=== PATIENT | female | born 1975 | race African-American/Black ===

== ENCOUNTER → 2019-01-06 | Outpatient (CLI) | payer OTHER ==
--- NOTE | 2019-01-06 14:31 | RADIOLOGY REPORT (SQ) ---
EXAM DESCRIPTION: MRI LT LOWER JOINT WITHOUT COMPLETED DATE/TIME: 01/06/2019 11:47 am REASON FOR STUDY: M25.562 PAIN IN LEFT KNEE M25.562 PAIN IN LEFT KNEE COMPARISON: None. TECHNIQUE: Leftknee images acquired and stored on PACS. Multiplanar images include fat sensitive se quences as T1, water sensitive sequences as FST2 or STIR, cartilage sensitive sequences as FSPD, and gradient echo sequences. LIMITATIONS: None. FINDINGS: JOINT AND BURSAE: Small joint effusion. No popliteal cyst. BONE CORTEX AND MARROW: No alteration of signal to suggest marrow replacement. No worrisome bone lesi ons. No occult fracture. ACL: Intact. No degeneration or ganglion cyst. PCL: Intact. MCL: Intact. No periligamentous edema or fluid. LCL: Intact. No periligamentous edema or fluid. MEDIAL MENISCUS: No tears. No abnormal signal. LATERAL MENISCUS: No tears. No abnormal signal. MEDIAL COMPARTMENT: Cartilage preserved. No bone bruises or reactive marrow edema. No osteophytes. LATERAL COMPARTMENT: 4 mm area of full-thickness cartilaginous loss of the lateral tibial plateau. PATELLA: No chondromalacia. No subchondral cysts. Medial and lateral retinacula intact. EXTENSOR MECHANISM: Intact. Quadriceps and patella tendons normal. SOFT TISSUES: Adjacent muscles and subcutaneous tissues normal. Normal flow void in popliteal artery and vein. OTHER: No other significant finding. IMPRESSION: Small area of cartilaginous loss lateral tibial plateau. Small joint effusion. TECHNICAL DOCUMENTATION: JOB ID: [id number] [employer]- All Rights Reserved Reading location - IP/workstation name: [email or web address]
== END ==
LOC: RAD 11:11
PROVIDERS: ATTEND Orthopaedic Surgery Sports Medicine
DX: M25.462 Effusion, left knee (principal); M25.562 Pain in left knee

== ENCOUNTER 2020-10-28 05:27 | Day surgery (SDC) | payer OTHER ==
--- NOTE | 2020-10-25 09:39 | RADIOLOGY REPORT (SQ) ---
EXAM DESCRIPTION: CHEST 2 VIEWS IMAGES COMPLETED DATE/TIME: 10/25/2020 9:28 am REASON FOR STUDY: PRE OP COMPARISON: 02/05/2007 EXAM PARAMETERS: NUMBER OF VIEWS: two views TECHNIQUE: Digital Frontal and Lateral radiographic views of the chest acquired. RADIATION DOSE: NA LIMITATIONS: none FINDINGS: LUNGS AND PLEURA: No opacities, masses or pneumothorax. No pleural effusion. MEDIASTINUM AND HILAR STRUCTURES: No masses or contour abnormalities. HEART AND VASCULAR STRUCTURES: Heart normal size. No evidence for failure. BONES: No acute findings. HARDWARE: None in the chest. OTHER: No other significant finding. IMPRESSION: NO ACUTE RADIOGRAPHIC FINDING IN THE CHEST. TECHNICAL DOCUMENTATION: JOB ID: [id number] [employer]- All Rights Reserved Reading location - IP/workstation name: [email or web address]
[2020-10-25 09:40] LABS: HEMATOCRIT 36.4 % (36.0-47.0); HEMOGLOBIN 12.2 g/dL (12.0-15.5); MEAN CORPUSCULAR HGB CONC 33.6 g/dL (32.0-36.0); MEAN CORPUSCULAR VOLUME 86 fl (80-97); PLATELET COUNT 244 10^3/uL (150-450); RED BLOOD COUNT 4.22 10^6/uL (3.72-5.28); WHITE BLOOD COUNT 4.5 10^3/uL (4.0-10.5)
[2020-10-25 09:59] LABS: APPEARANCE,URINE SLIGHTLY-CLOUDY; BILIRUBIN,URINE NEGATIVE (NEGATIVE); COLOR,URINE YELLOW; GLUCOSE, URINE NEGATIVE (NEGATIVE); KETONES,URINE NEGATIVE (NEGATIVE); LEUKOCYTE ESTERASE,URINE NEGATIVE (NEGATIVE); NITRITE,URINE NEGATIVE (NEGATIVE); PROTEIN,URINE NEGATIVE (NEGATIVE); URINE SPECIFIC GRAVITY 1.014; UROBILINOGEN,URINE NEGATIVE mg/dL (<2.0)
[2020-10-25 10:10] LABS: ALBUMIN 4.5 g/dL (3.5-5.0); ALKALINE PHOSPHATASE 68 U/L (38-126); ANION GAP 8 (5-19); ASPARTATE AMINO TRANSFERASE 31 U/L (14-36); BILIRUBIN,DIRECT 0.1 mg/dL (0.0-0.4); BILIRUBIN,TOTAL 0.7 mg/dL (0.2-1.3); BLOOD UREA NITROGEN 9 mg/dL (7-20); CALCIUM 9.5 mg/dL (8.4-10.2); CARBON DIOXIDE 28 mmol/L (22-30); CHLORIDE 102 mmol/L (98-107); GLUCOSE 92 mg/dL (75-110); TOTAL PROTEIN 7.8 g/dL (6.3-8.2)
--- NOTE | 2020-10-25 13:20 | EKG REPORT ---
SEVERITY:- NORMAL ECG - SINUS RHYTHM : Confirmed by: Gio Santa MD 25-Oct-2020 13:19:21
[~2020-10-28 05:27] MED LIST: CEFAZOLIN 1 GM/D5W RTU 1 GM/50 ML RTUPB IV PRN; RINGERS SOLUTION,LACTATED 1,000 ML IV PRN
[2020-10-28] MEDS ORDERED: CEFAZOLIN 1 GM/D5W RTU 1 GM/50 ML RTUPB IV ONE (05:34)
[2020-10-28] MEDS ORDERED: KETOROLAC TROMETHAMINE 60 MG/2 ML SDV ONE (06:31)
[2020-10-28] MEDS ORDERED: KETAMINE HCL INJ 500 MG/10 ML VIAL ONE (06:31)
[2020-10-28] MEDS ORDERED: MIDAZOLAM 2 MG/2 ML INJ ONE (06:31)
[2020-10-28] MEDS ORDERED: FENTANYL CITRATE INJ/PF 250 MCG/5 ML AMPULE ONE (06:31)
[2020-10-28] MEDS ORDERED: LIDOCAINE 2% INJ-PF (100 MG/5 ML) SYRINGE ONE (06:31)
[2020-10-28] MEDS ORDERED: ONDANSETRON HCL INJ/PF 4 MG/2 ML SDV ONE (06:32)
[2020-10-28] MEDS ORDERED: PROPOFOL INJ 200 MG/20 ML VIAL IV ONE (06:32)
[2020-10-28] MEDS ORDERED: EPHEDRINE SULFATE INJ 50 MG/1 ML AMPULE ONE (06:32)
[2020-10-28] MEDS ORDERED: FENTANYL CITRATE INJ/PF 100 MCG/2 ML AMPUL IV PRN ×2 (08:25)
[2020-10-28] MEDS ORDERED: PROMETHAZINE HCL INJ 25 MG/1 ML VIAL IV PRN (08:25)
[2020-10-28] MEDS ORDERED: ONDANSETRON HCL INJ/PF 4 MG/2 ML SDV IV PRN (08:25)
[2020-10-28] MEDS ORDERED: MEPERIDINE HCL/PF INJ 25 MG/1 ML DISP.SYRIN IV PRN (08:25)
[2020-10-28] MEDS ORDERED: DIPHENHYDRAMINE HCL 50 MG/ML VIAL IV PRN (08:25)
[2020-10-28] MEDS ORDERED: SUGAMMADEX SODIUM 200 MG/2 ML SDV IV ONE (09:51)
[2020-10-28] MEDS ORDERED: ACETAMINOPHEN 325 MG TABLET PO PRN (09:59)
[2020-10-28] MEDS ORDERED: RINGERS SOLUTION,LACTATED 1,000 ML IV PRN (09:59)
[2020-10-28] MEDS ORDERED: SIMETHICONE 80 MG TAB.CHEW PO PRN (09:59)
[2020-10-28] MEDS ORDERED: ACETAMINOPHEN 1,000 MG/100 ML RTUPB IV PRN (09:59)
[2020-10-28] MEDS ORDERED: OXYCODONE-ACETAMINOPHEN 5-325 MG TABLET PO PRN ×2 (09:59)
--- NOTE | 2020-10-28 10:15 | Operative Report ---
Operative Report DATE OF SURGERY: 10/28/20 PREOPERATIVE DIAGNOSIS: Multiple symptomatic leiomyoma of the uterus, dysfuncti onal uterine bleeding, anemia, pelvic pain POSTOPERATIVE DIAGNOSIS: Same OPERATION: Biotic assisted total laparoscopic hysterectomy with bilateral ino pingectomy SURGEON: VALERIA MORAN 1ST SPIRAL WINDER: GURU ACEVES 2ND Cotton Feeder: JUAN FRANCISCO HUGHES ANESTHESIA: GA TISSUE REMOVED OR ALTERED: Uterus cervix bilateral fallopian tubes COMPLICATIONS: None ESTIMATED BLOOD LOSS: 250 cc INTRAOPERATIVE FINDINGS: 14-week size uterus enlarged with multiple fibroids, adhesions of the bladder to the lower uterine segment PROCEDURE: Patient was taken to the operating room prepared and draped in normal sterile fashion in dorsolithotomy position. Under sterile conditions a Salas catheter was placed to gravity. Speculum was placed into the vagina and the cervix was grasped on the anterior lip with a single-tooth tenaculum. The cervix was then dilated to accommodate a medium V care uterine manipulator. Manipulate it was placed gloves were changed and attention was turned to the upper portion of the case. A 2-1/2 cm umbilical skin incision was made 11 blade and this was carried through to the underlying layer of fascia with the same 11 blade. It was grasped to Sampson's acted with Casillas's. Peritoneal cavity was entered bluntly. A GelPort was placed in a normal fashion, a large morcellation bag was then placed into the right paracolic gutter. the camera port and air seal in the appropriate locations gel. Peritoneal cavity was then inflated with approximately 2 L of CO2 gas. The camera was then introduced into the peritoneal cavity through the camera port and the patient was placed in steep Trendelenburg. The above findings were noted. Under direct visualization two 5 mm ports were placed approximately 10 cm on either side of the umbilicus. The robot was then docked with the vessel sealer placed on the patient's left and the monopolar scissors placed placed on the patient's right. I then unscrubbed and set at the robotic console beginning with the left adnexa fallopian tube was transected from the uterus using the vessel sealer and monopolar scissors as needed. The fallopian tube was then removed through the assistance port. The ovarian ligament was then transected using the vessel sealer. The uterine artery was skeletonized using blunt dissection and ligated using the vessel sealer down to the level of the external cervical os. The bladder flap was then begun using monopolar scissors and blunt dissection over the V care cup noted through the mucosa. Attention was then turned to the right adnexa where the fallopian tube was transected in a similar fashion. The utero-ovarian ligament was transected using the vessel sealer. The Uterine artery was then transected using the vessel sealer and skeletonized using blunt dissection. The vessel sealer was again used to completely transect the uterine artery down to the level of the external cervical os. The bladder flap was completed using similar sharp and blunt dissection. Once the bladder was felt to be adequately away from the lower uterine segment, the colpotomy was begun on the anterior aspect of the cervix following the outline of the V care cup mucosa. The cup was followed in a circumferential fashion completely around the cervix estimate was completely freed. The specimen was then tucked in the upper pericolic gutter for removal later due to its size. The instruments were then changed to a Cholo needle over the road driver and pro-grasp. AV lock needle was introduced through the assistance port. The V lock needle was used to close the vaginal cuff with good hemostasis. The needle was then removed through the assistance port. The peritoneal cavity was carefully inspected the ureters were noted to both be peristalsing and there was no signs of hydroureter. The morcellation bag was then located and untied the and was located in the upper left paracolic gutter and placed within the morcellation bag. Grasper was placed on the specimen to hold it within the bag. The abdomen was deflated and the robot was then undocked. Morcellation bag was brought to the GelPort service however the specimen had slipped out of the morcellation bag. Attempts to bluntly palpate for the specimen to bring it to the umbilical opening were unsuccessful. Multiple attempts were tried specimen could be palpated but could not be grasped or tips. For the GelPort was replaced and the abdomen was reinflated. We were able to locate the specimen which had gone higher into the right paracolic gutter and underneath the bowel. Wrapped with an atraumatic grasper and held in place and brought to the opening of the GelPort. The abdomen was deflated once more and the gel was removed. Was able at this at this time to grasped the specimen with safely with Venus's. Was able to manipulate it out through the abdominal incision. the fascia was closed at the umbilical skin incision seen 0 Vicryl 3 skin incisions were closed using 4-0 Vicryl. Sponge lap and needle counts were correct x2 and the patient was taken to recovery in stable condition.
[2020-10-28] MEDS ORDERED: FENTANYL CITRATE INJ/PF 100 MCG/2 ML AMPUL ONE (10:31)
[2020-10-28] MEDS ORDERED: ACETAMINOPHEN 1,000 MG/100 ML RTUPB IV ONE (10:32)
[2020-10-28] MEDS: FENTANYL CITRATE INJ/PF 100 MCG/2 ML AMPUL IV PRN ×2 (10:36→10:41)
[2020-10-28] MEDS ORDERED: KETOROLAC TROMETHAMINE INJ/PF 30 MG/1 ML SDV ONE (10:56)
[2020-10-28] MEDS: MORPHINE SULFATE 10 MG/ML INJ ONE ×2 (11:00→11:10)
[2020-10-28] MEDS ORDERED: NEOSTIGMINE METHYLSULFATE 10 MG/10 ML VIAL ONE (12:39)
[2020-10-28] MEDS ORDERED: METOCLOPRAMIDE HCL INJ/PF 10 MG/2 ML SDV ONE (12:39)
[2020-10-28] MEDS ORDERED: ESMOLOL HCL INJ/PF 100 MG/10 ML SDV IV ONE (12:39)
[2020-10-28] MEDS ORDERED: GLYCOPYRROLATE 1 MG/5 ML VIAL ONE (12:39)
[2020-10-28] MEDS ORDERED: NORMAL SALINE INJ/PF 0.9% 10 ML SDV ONE (12:39)
[2020-10-28] MEDS ORDERED: PHENYLEPHRINE HCL INJ/PF 10 MG/1 ML SDV ONE (12:39)
[2020-10-28] MEDS ORDERED: ROCURONIUM BROMIDE INJ 50 MG/5 ML VIAL IV ONE (12:39)
[2020-10-28] MEDS: PROMETHAZINE HCL INJ 25 MG/1 ML VIAL IV PRN (12:50)
[2020-10-28] MEDS: KETOROLAC TROMETHAMINE INJ/PF 30 MG/1 ML SDV IV SCH ×2 (13:39→21:03)
[2020-10-28] MEDS: DIPHENHYDRAMINE HCL 50 MG/ML VIAL IV PRN ×3 (13:39→22:41)
[2020-10-28] MEDS: MORPHINE SULFATE 10 MG/ML INJ IM PRN ×3 (13:39→22:29)
[2020-10-28] MEDS ORDERED: DOCUSATE SODIUM 100 MG CAPSULE PO SCH (18:00)
[2020-10-29] MEDS: KETOROLAC TROMETHAMINE INJ/PF 30 MG/1 ML SDV IV SCH (05:29)
[2020-10-29 07:14] LABS: HEMOGLOBIN 10.4 g/dL (12.0-15.5); MEAN CORPUSCULAR HEMOGLOBIN 28.8 pg (27.0-33.4); MEAN CORPUSCULAR HGB CONC 33.6 g/dL (32.0-36.0); MEAN CORPUSCULAR VOLUME 86 fl (80-97); PLATELET COUNT 191 10^3/uL (150-450); RED BLOOD COUNT 3.61 10^6/uL (3.72-5.28); RED CELL DISTRIBUTION WIDTH 12.4 % (11.5-14.0); WHITE BLOOD COUNT 9.8 10^3/uL (4.0-10.5)
--- NOTE | 2020-10-29 07:53 | PDOC DISCHARGE SUMMARY ---
Impression - Admit/DC Date/PCP Admission Date/Primary Care Provider: RUBEN HERNANDEZ MD Discharge Date: 10/29/20 - Discharge Diagnosis (1) Leiomyoma of body of uterus Is this a current diagnosis for this admission?: Yes (2) Anemia Is this a current diagnosis for this admission?: Yes (3) Abnormal uterine bleeding Is this a current diagnosis for this admission?: Yes (4) Pelvic pain Is this a current diagnosis for this admission?: Yes - Assessment Summary: Patient underwent a robotic assisted total laparoscopic hysterectomy with bilateral salpingectomy. She has had an unremarkable postoperative course. She complains of side effects with Percocet and has not taken that. We were able to relieve her other side effects from the morphine and gave her Benadryl as well as Phenergan to counteract the itching in the vomiting which she has done well with. I discussed with her today and she does desire discharge home. Is passing gas and voiding as well as ambulating. Per the nurse that she has not ambulated very much only to the bathroom and back. I emphasized ambulating as much as she could tolerate at home to prevent DVT and blood clots. And I will be discharging her with Phenergan for nausea, Dilaudid and ibuprofen for pain, and Colace for stool softeners. I explained to her and her both that it is very important to keep the bowels working and therefore to utilize [id number] MiraLAX, senna and suppositories for what ever is needed to make sure that she is having bowel movements on a daily basis. Both voiced understanding. - Additional Information Resuscitation Status: Full Code Discharge Diet: As Tolerated Discharge Activity: Balance Activity w/Rest, No Driving, No Lifting Over 10 Pounds, No Lifting/Push/Pulling, Pelvic Rest, No tub bath, Walk Frequently Referrals: VALERIA MORAN MD [ACTIVE STAFF] - 11/12/20 1:00 pm (CALL THE OFFICE TO CONFIRM YOUR APPOINTMENT. IF YOU HAVE ANY QUESTIONS OR CONCERNS CALL THE OFFICE.) RUBEN HERNANDEZ MD [Primary Care Provider] - Prescriptions: Promethazine HCl [Phenergan Inj 25 mg/1 ml Vial] 25 mg PO Q6HP PRN #30 tab PRN Reason: Diphenhydramine HCl [Benadryl Inj 50 mg/1 ml Vial] 25 mg PO Q6 PRN #30 tab PRN Reason: Docusate Sodium [Colace 100 mg Capsule] 100 mg PO BID #60 capsule Hydromorphone HCl [Dilaudid] 2 mg PO Q6 PRN #30 ml PRN Reason: Ibuprofen [Motrin 800 mg Tablet] 800 mg PO Q6 #60 tablet Home Medications: Cetirizine HCl [Zyrtec] 10 mg PO DAILY 10/25/20 Fluticasone Propionate [Flonase Nasal [place] 50 Mcg/[place] 16 gm] 2 sprays NASL Q12 10/25/20 Sumatriptan Succ/Naproxen Sod [Sumatriptan-Naproxen 85-500 mg] 1 each PO ASDIR PRN 10/25/20 Zolpidem Tartrate 10 mg PO QHS 10/25/20 Diphenhydramine HCl [Benadryl Inj 50 mg/1 ml Vial] 25 mg PO Q6 PRN #30 tab 10/29/20 Docusate Sodium [Colace 100 mg Capsule] 100 mg PO BID #60 capsule 10/29/20 Hydromorphone HCl [Dilaudid] 2 mg PO Q6 PRN #30 ml 10/29/20 Ibuprofen [Motrin 800 mg Tablet] 800 mg PO Q6 #60 tablet 10/29/20 Promethazine HCl [Phenergan Inj 25 mg/1 ml Vial] 25 mg PO Q6HP PRN #30 tab 10/29/20 History of Present Illiness History of Present Illness: ANGELITO SIU is a 45 year old female Physical Exam - Physical Exam Vital Signs: Temp Pulse Resp BP Pulse Ox 98.3 F 77 16 120/66 96 10/29/20 04:50 10/29/20 04:50 10/29/20 04:50 10/29/20 04:50 10/29/20 04:50 Intake & Output 10/28/20 10/29/20 10/30/20 06:59 06:59 06:59 Intake Total 0 1525 Output Total 850 Balance 0 675 Weight 80.74 kg Results Laboratory Results: WBC 9.8 10^3/uL (4.0-10.5) 10/29/20 06:37 RBC 3.61 10^6/uL (3.72-5.28) L 10/29/20 06:37 Hgb 10.4 g/dL (12.0-15.5) L 10/29/20 06:37 Hct 31.0 % (36.0-47.0) L 10/29/20 06:37 MCV 86 fl (80-97) 10/29/20 06:37 MCH 28.8 pg (27.0-33.4) 10/29/20 06:37 MCHC 33.6 g/dL (32.0-36.0) 10/29/20 06:37 RDW 12.4 % (11.5-14.0) 10/29/20 06:37 Plt Count 191 10^3/uL (150-450) 10/29/20 06:37 Sodium 138.3 mmol/L (137-145) 10/25/20 08:49 Potassium 4.0 mmol/L (3.6-5.0) 10/25/20 08:49 Chloride 102 mmol/L (98-107) 10/25/20 08:49 Carbon Dioxide 28 mmol/L (22-30) 10/25/20 08:49 Anion Gap 8 (5-19) 10/25/20 08:49 BUN 9 mg/dL (7-20) 10/25/20 08:49 Creatinine 0.84 mg/dL (0.52-1.25) 10/25/20 08:49 Est GFR ( Amer) > 60 (>60) 10/25/20 08:49 Est GFR (MDRD) Non-Af > 60 (>60) 10/25/20 08:49 Glucose 92 mg/dL (75-110) 10/25/20 08:49 Calcium 9.5 mg/dL (8.4-10.2) 10/25/20 08:49 Total Bilirubin 0.7 mg/dL (0.2-1.3) 10/25/20 08:49 Direct Bilirubin 0.1 mg/dL (0.0-0.4) 10/25/20 08:49 Neonat Total Bilirubin Not Reportable 10/25/20 08:49 Neonat Direct Bilirubin Not Reportable 10/25/20 08:49 Neonat Indirect Bili Not Reportable 10/25/20 08:49 AST 31 U/L (14-36) 10/25/20 08:49 ALT 21 U/L (<35) 10/25/20 08:49 Alkaline Phosphatase 68 U/L (38-126) 10/25/20 08:49 Total Protein 7.8 g/dL (6.3-8.2) 10/25/20 08:49 Albumin 4.5 g/dL (3.5-5.0) 10/25/20 08:49 Urine Color YELLOW 10/25/20 08:55 Urine Appearance SLIGHTLY-CLOUDY 10/25/20 08:55 Urine pH 6.0 (5.0-9.0) 10/25/20 08:55 Ur Specific Saxis 1.014 10/25/20 08:55 Urine Protein NEGATIVE mg/dL (NEGATIVE) 10/25/20 08:55 Urine Glucose (UA) NEGATIVE mg/dL (NEGATIVE) 10/25/20 08:55 Urine Ketones NEGATIVE mg/dL (NEGATIVE) 10/25/20 08:55 Urine Blood SMALL (NEGATIVE) H 10/25/20 08:55 Urine Nitrite NEGATIVE (NEGATIVE) 10/25/20 08:55 Urine Bilirubin NEGATIVE (NEGATIVE) 10/25/20 08:55 Urine Urobilinogen NEGATIVE mg/dL (<2.0) 10/25/20 08:55 Ur Leukocyte Esterase NEGATIVE (NEGATIVE) 10/25/20 08:55 Urine WBC (Auto) 1 /HPF 10/25/20 08:55 Urine RBC (Auto) 8 /HPF 10/25/20 08:55 Urine Bacteria (Auto) TRACE /HPF 10/25/20 08:55 Squamous Epi Cells Auto 7 /HPF 10/25/20 08:55 Urine Mucus (Auto) MOD /LPF 10/25/20 08:55 Urine Ascorbic Acid NEGATIVE (NEGATIVE) 10/25/20 08:55 Urine HCG, Qual NEGATIVE (NEGATIVE) 10/28/20 05:35 COVID-19 Source See comment 10/25/20 08:55 COVID-19 ([place]) Not Detected (Not Detect) 10/25/20 08:55 Blood Type B POSITIVE 10/25/20 08:49 Antibody Screen NEGATIVE 10/25/20 08:49 Impressions: Chest X-Ray 10/25/20 09:17 IMPRESSION: NO ACUTE RADIOGRAPHIC FINDING IN THE CHEST. Stroke Is this a Stroke Patient?: No Acute Heart Failure Is this a Heart Failure Patient?: No
[2020-10-29 07:55] VITALS: BP 118/60
[2020-10-29] MEDS: MORPHINE SULFATE 10 MG/ML INJ IM PRN (08:33)
[2020-10-29] MEDS: DIPHENHYDRAMINE HCL 50 MG/ML VIAL IV PRN (08:35)
[2020-10-29] MEDS: PROMETHAZINE HCL INJ 25 MG/1 ML VIAL IV PRN (09:28)
[2020-10-29] MEDS ORDERED: IBUPROFEN 800 MG TABLET PO SCH (12:00)
== END 2020-10-29 09:48 | disposition home or self-care (01) ==
LOC: OROUT 05:27 → 2N 11:40 → OROUT 10-29 09:48
PROVIDERS: ATTEND Obstetrics & Gynecology
DX: D25.1 Intramural leiomyoma of uterus (principal); D25.0 Submucous leiomyoma of uterus; D25.2 Subserosal leiomyoma of uterus; N83.8 Other noninflammatory disorders of ovary, fallopian tube and broad ligament; D64.9 Anemia, unspecified; N93.9 Abnormal uterine and vaginal bleeding, unspecified; R10.2 Pelvic and perineal pain; Z20.822 Contact with and (suspected) exposure to COVID-19; Z01.812 Encounter for preprocedural laboratory examination; Z79.899 Other long term (current) drug therapy; Z79.3 Long term (current) use of hormonal contraceptives; R11.10 Vomiting, unspecified; L29.9 Pruritus, unspecified; T40.2X5A Adverse effect of other opioids, initial encounter; Y92.530 Ambulatory surgery center as the place of occurrence of the external cause; Z88.5 Allergy status to narcotic agent; Z88.4 Allergy status to anesthetic agent
CPT/HCPCS: 93005; 86900; 86901; 36415 ×2; 86850; 85027 ×2; 87635; 81025; 80053; 81001; 88307 ×2; 71046; 94799; 93010; 00840; 58571; C1758; A4649; J2250; J0690; J3490 ×6; J1200 ×2; J1885 ×3; J3010 ×2; J2001; J2765; J2270 ×2; J2710; J2370; J2550 ×2; J2405; J7120; J2704; J0131; C9803; 840